=== PATIENT | female | born 1990 | race Caucasian/White ===

== ENCOUNTER 2021-04-09 20:17 | Emergency (ER) | payer OTHER, SELFPAY ==
[2021-04-09 20:30] VITALS: BP 158/109; PULSE 131; RESP 20; TEMP 36.9; O2SAT 100; BMI 34.9
[2021-04-09 21:11] LABS: RBC Urine 0-1/HPF (0-5/HPF); Squamous Epithelial Cell Urine 0-1 /HPF (0-5/HPF); Transitional Epi Cells Urine 0-1/HPF (0-5/HPF); WBC Urine >100/HPF (0-5/HPF)
[2021-04-09 21:12] LABS: Bacteria Urine Moderate (10-30); Culture Indicated Urine Specimen Cultured
--- NOTE | 2021-04-09 21:28 | ED.FEMALEGU ---
HPI - Female Genitourinary General Chief complaint: Urogenital-Female Stated complaint: CRAMPING BURNING WHEN PEE WHITE FILM BACK THROAT Time Seen by Provider: 04/09/21 20:43 Source: patient Mode of arrival: Ambulatory Limitations: no limitations History of Present Illness HPI Narrative: Patient complains of 1 month of urinary frequency urgency dysuria. No fever chills. No vaginal discharge. Complains of is white small speck in the back of her throat. Patient states her and her had sexual activity with a 3rd person 1 month ago. No prior history of STDs. Related Data Previous Rx's Medication Instructions Recorded phenazopyridine 100 mg tablet 100 mg PO TID PRN #6 tab 04/09/21 (Pyridium) sulfamethoxazole 800 1 tab PO BID #14 tab 04/09/21 mg-trimethoprim 160 mg tablet (Bactrim DS) Allergies Allergy/AdvReac Type Severity Reaction Status Date / Time amoxicillin Allergy Hives Verified 04/09/21 21:42 Review of Systems Review of Systems Narrative: GENERAL: Denies chills, fatigue, malaise, fever, sweats. HEENT: Denies sinus pain, ear pain, complains of white lesion in the pharynx RESPIRATORY: Denies dyspnea, cough CARDIOVASCULAR: Denies chest pain, palpitations GASTROINTESTINAL: Denies nausea, vomiting, abdominal pain : Complains of dysuria, frequency, denies hematuria MUSCULOSKELETAL: denies muscle or bony pain SKIN: Denies rash, skin lesions NEUROLOGIC: Denies weakness, numbness ROS Unobtainable: All systems reviewed & are unremarkable except as noted in HPI and below Patient History alcohol intake frequency: 0-2 drinks per day Substance Use Type: does not use Exam Narrative Exam Narrative: GENERAL: in no distress, not toxic not dyspneic HEAD: Normocephalic. EYES: Pupils equal round No scleral icterus. No injection no discharge ENT: Mucous membranes moist. Small punctate white lesions in the right pharynx. No tongue elevation. No exudates. No drooling. NECK: Trachea midline. CARDIOVASCULAR: Regular rate and rhythm without murmurs RESPIRATORY: Clear to auscultation. Breath sounds equal bilaterally. No wheezes, rales, or rhonchi. GASTROINTESTINAL: Abdomen soft, non-tender, no suprapubic tenderness EXTREMITIES: No gross deformities. BACK: No flank tenderness. NEURO: AOx4. SKIN: Warm and dry PSYCH: Not anxious, is cooperative Initial Vital Signs Initial Vital Signs: Vital Signs Temperature 98.5 F 04/09/21 20:30 Pulse Rate 131 H 04/09/21 20:30 Respiratory Rate 20 04/09/21 20:30 Blood Pressure 158/109 H 04/09/21 20:30 Pulse Oximetry 100 04/09/21 20:30 Course Orders Ordered: ED Orders 04/09/21 20:47 Chlamydia Gonorrhea PCR -URINE Stat Urine Culture Stat Urine Microscopic Stat Discontinued Medications Phenazopyridine HCl (Phenazopyridine 100 Mg Tablet) 200 mg PO NOW ONE Stop: 04/09/21 21:29 Last Admin: 04/09/21 21:42 Dose: 200 mg Documented by: LUIS FELIPE Trimethoprim/Sulfamethoxazole (Trimeth/Sulfa 160/800 (Ds) Tablet) 1 tab PO NOW ONE Stop: 04/09/21 21:29 Last Admin: 04/09/21 21:42 Dose: 1 tab Documented by: LUIS FELIPE Reevaluation(s) Reevaluation #1: Patient agrees with treatment plan and follow-up. She does have a family doctor. Results reviewed with patient Time: 21:31 Vital Signs Vital signs: Vital Signs - 8 hr 04/09/21 20:30 04/09/21 22:37 Temperature 98.5 F Pulse Rate 131 H 105 H Respiratory Rate 20 16 Blood Pressure 158/109 H 157/98 H Pulse Oximetry 100 99 MDM - Female Genitourinary Differential Diagnosis Differential diagnosis: Likely urinary tract infection, trichomoniasis, cystitis and other (Urethritis) Lab Data Labs: Lab Results 04/09/21 04/09/21 Range/Units 20:47 20:47 Urine RBC 0-1/hpf (0-5/HPF) Urine WBC >100/hpf H (0-5/HPF) Ur Squamous Epith Cells 0-1 /hpf (0-5/HPF) Ur Transition Epith Cell 0-1/hpf (0-5/HPF) Urine Bacteria Moderate (10-30) H (None) Ur Culture Indicated? Specimen cultured Ur Chlamydia DNA (PCR) Not detected N gonorrhoeae DNA (PCR) Not detected Point of Care Testing Test Results Negative Rapid Strep A Negative Urine Dip Bedside Urine Glucose Negative Bedside Urine Bilirubin - Negative Bedside Urine Ketone - Negative Urine Specific [place] 1.025 Bedside Urine Occult Blood - Negative Bedside Urine pH 6 Bedside Urine Protein + 30 Bedside Urine Urobilinogen +/- 1mg Bedside Urine Nitrite - Negative Bedside Urine Leukocytes + 70 Esterase MDM Narrative Medical decision making narrative: Appropriate discharge home. Exam reassuring. Laboratory studies reassuring. Return precautions reviewed with her. Friend at bedside. Not toxic at discharge. No antibiotics for punctate white lesion on pharynx. Clinically not pharyngitis/strep throat. Discharge Plan Departure Patient Disposition: Home Clinical Impression: Urinary tract infection Qualifiers: Urinary tract infection type: site unspecified Hematuria presence: without hematuria Qualified Code(s): N39.0 - Urinary tract infection, site not specified Instructions: DI for Urinary Tract Infection (UTI) Activity Restrictions/Additional Instructions: See family doctor this week for recheck. No sexual activity until seen by family doctor. Keep well hydrated. Return if worsening questions or concerns. Prescriptions: New sulfamethoxazole-trimethoprim [Bactrim DS] 800-160 mg tablet 1 tab PO BID Qty: 14 RF: 0 phenazopyridine [Pyridium] 100 mg tablet 100 mg PO TID PRN (Reason: pain) Qty: 6 RF: 0
[2021-04-09] MEDS: TRIMETH/SULFA 160/800 (DS) TABLET 1 TAB PO (21:42)
[2021-04-09] MEDS: PHENAZOPYRIDINE 100 MG TABLET 200 MG PO (21:42)
[2021-04-09 22:19] LABS: Urine N gonorrhoeae NOT DETECTED
[2021-04-09 22:26] LABS: Urine Chlamydia NOT DETECTED
[2021-04-09 22:37] VITALS: BP 157/98; PULSE 105; RESP 16; O2SAT 99
== END 2021-04-09 22:37 | disposition home or self-care (01) ==
PROVIDERS: Emergency Provider Emergency Medicine
DX: N39.0 Urinary tract infection, site not specified (principal)
CPT/HCPCS: 81003; 81015; 81025; 87077; 87086; 87186; 87491; 87591; 87880; 99283